=== PATIENT | male | born 1950 | race Asian ===

== ENCOUNTER 2024-11-07 09:52 | Day surgery (SDC) | payer OTHER, SELFPAY ==
[2024-11-07] VITALS (20 sets, daily range): BP systolic 112–169; BP diastolic 69–93; BMI 22.3
[2024-11-07 10:34] LABS: Glucose - Point of Care 140 mg/dl (70-99)
--- NOTE | 2024-11-07 16:35 | ITS.CL.ANGIO ---
Industrial Sales Representative - Angioplasty
Angioplasty
Procedure Report:
CARDIAC CATHETERIZATION REPORT
Date of Procedure: 11/07/2024
Referring: Ramon Parnell D.O.
INDICATION: Known coronary artery disease with prior LAD PCI, accelerating angina, abnormal stress test
PROCEDURE:
1. Left heart catheterization
2. Coronary angiography.
3. Intravascular ultrasound.
4. Successful intravascular lithotripsy of proximal LAD neoatherosclerosis ISR.
5. Successful PCI of the proximal LAD neoatherosclerosis ISR.
A total of 98 minutes of procedural/moderate sedation was utilized. An independent medical safety director was present to assist with and help manage the patient's level of consciousness and physiologic status.
ACCESS:
1. 6 Indian right radial artery using a modified Seldinger technique.
CATHETERS:
1. 5 Indian JR4.
2. 5 Indian JL 3.5.
3. 6 Indian EBU 3.5 guiding catheter.
HEMODYNAMIC DATA
Weight (kg): 64.4
AO (s/d/x, mmHg): 105/68/84
LV (s/x mmHg): 109/6
LEFT VENTRICULOGRAPHY: Not performed.
CORONARY ANGIOGRAPHY
Dominance: Right.
Left Main: Extremely short, trifurcating vessel. There is no coronary artery disease.
LAD: Large size vessel giving rise to 2 diagonals. A patent stent is observed in the proximal and mid LAD spanning the origin of the first diagonal. There is at least 30% in-stent restenosis throughout the entire stent with a focal 90% ISR
lesion in the distal margin of the stent.
Ramus: Large size vessel supplying the majority of the lateral wall giving rise to several smaller branches. There is no coronary artery disease.
Circumflex: Small size, AV groove vessel. There is no coronary artery disease.
RCA: Normal size, dominant vessel. There is no coronary artery disease. Of note, a large RV marginal arises immediately anterior to the RCA proper with a separate ostia.
INTERVENTION(S)
1. Intravascular ultrasound of the LAD.
2. Successful intracoronary lithotripsy of the entire stented segment (Shockwave 4.0 x 12 lithotripsy balloon).
3. Successful IVUS guided PCI of the proximal and mid LAD (Xience Skypoint 3.5 x 38 SANGEETHA, postdilated with a 3.5 NC balloon throughout and a 4.0 x 12 NC balloon in the proximal margin) with reduction in stenosis to 0%, maintaining DAVIAN-3 flow in the
LAD but loss of flow in the small first diagonal.
Narrative:
The decision was made to proceed with percutaneous coronary intervention. The diagnostic catheter was removed over a wire and a 6Fr EBU 3.5 guiding catheter was advanced to the aortic root and seated in the left main coronary artery. Additional
heparin was given and a Power Turn Flex wire was advanced into the distal LAD. The 90% proximal/mid LAD ISR lesion was predilated with a 2.0 x 12 semi-compliant balloon to 12 anum.
The decision was made to perform intracoronary imaging. An IVUS catheter was advanced through the guiding catheter and into the ostium of the artery. Ring down was performed once the imaging crystal was no longer inside of the guiding catheter. The
IVUS catheter was advanced but would not cross the ISR lesion. More dilation was indicated as was catheter support. The IVUS catheter was withdrawn and a 3.0 x 20 semicompliant balloon was advanced with GuideLiner support. The entire stented
segment was predilated to 12-14 anum. The semicompliant balloon was withdrawn and the IVUS was readvanced with the GuideLiner and support. This time, the IVUS catheter was able to enter the mid vessel with relative ease. The GuideLiner was pulled
back and intravascular ultrasound was performed in a retrograde fashion using a slow pullback. Intracoronary imaging demonstrated severe, neoatherosclerotic ISR in multiple sections of the stents, worse than represented by angiography. This also
demonstrated that the proximal margin of the stent was not well opposed to the proximal LAD artery wall. Vessel measurements were taken.
Given the severity of the calcification and the neoatherosclerotic ISR, the decision was made to proceed with plaque modification. A Shockwave 4.0 x 12 coronary lithotripsy balloon was advanced over the wire and into the proximal/mid LAD ISR
lesion. The balloon was sterilely connected to the controller and prepped to negative pressure. Meticulous care was taken while positioning the shockwave balloon. Once in satisfactory position, the balloon was inflated to 4 anum. After confirming
good contact with the vessel wall, 10 pulses were delivered. After delivering 10 pulses, the balloon was inflated to 6 anum then deflated. The entire lesion was treated in a similar manner for total of 12 rounds throughout the entire previous stent.
The Shockwave balloon was withdrawn and a 4.0 x 15 NC balloon was advanced. The entire stented segment was predilated to 14-16 anum.
The noncompliant balloon was withdrawn and IVUS was repeated, confirming prior measurements and demonstrating improvement in the in-stent restenosis lesion lumen.
The IVUS catheter was removed and a Xience Skypoint 3.5 x 38 drug-eluting stent was advanced. Meticulous care was taken while positioning the stent, ensuring that the previous stented segment was covered but that the proximal margin of the stent
did not protrude into the left main coronary artery. When we were satisfied with our position, the stent was deployed at 12 atmospheres. The stent balloon was removed. A 3.5 x 20 noncompliant balloon was advanced into the stent and the stent was
postdilated to 14�16 atmospheres throughout. The noncompliant balloon was withdrawn and a 4.0 x 15 NC balloon was advanced. The proximal stent margin was postdilated to 14 anum.
The noncompliant balloon was removed and IVUS was readvanced into the mid LAD. IVUS was performed in a retrograde fashion showing good stent expansion and apposition throughout the entire stented segment length. The proximal margin showed much
improved stent apposition to the proximal vessel wall. This also demonstrated that the stent did not intrude into the left main coronary artery in any way. The IVUS catheter was withdrawn.
Angiography was performed in orthogonal views, confirming good stent expansion and an excellent angiographic result, though we did note the loss of flow in the small first diagonal branch. The coronary wire was withdrawn and the guide was disengaged
from the artery. The catheter was removed over a standard J-wire. The patient was loaded with clopidogrel 600 mg.
Closure Device: Vascular band.
Radiation (mGy): 630.56
DAP (cm2.Gy): 48.8512
Fluoroscopy time (minutes): 21.5
CONCLUSIONS
1. Right dominant circulation with separate ostia of the RV marginal, a very short, trifurcating left main coronary artery, a patent stent in the proximal/mid LAD spanning the origin of a small first diagonal with at least 30% ISR throughout and a
focal, 90%, neoatherosclerotic ISR lesion, status post successful intracoronary lithotripsy (Shockwave 4.0 x 12 lithotripsy balloon) and IVUS guided PCI (Xience Skypoint 3.5 x 38 SANGEETHA, postdilated with a 3.5 NC balloon throughout and a 4.0 NC balloon
in the proximal margin) with reduction in stenosis to 0%, maintaining DAVIAN-3 flow in the LAD with loss of flow in the small first diagonal.
2. Normal filling pressures (LVEDP = 6 mmHg at 64.4 kg).
RECOMMENDATIONS:
1. Expectant management after cardiac catheterization via right radial approach.
2. Limited weight bearing on the right wrist for one week.
3. Dual antiplatelet therapy with aspirin and clopidogrel for at least 12 months, followed by aspirin indefinitely.
4. Cycle CK-MB and troponin overnight given loss of the small diagonal.
5. Aggressive secondary prevention with high-dose, high potency statin. Goal LDL <55.
6. OMT/GDMT as hemodynamics will tolerate.
7. Echocardiogram ordered and pending.
8. Referral to cardiac rehab.
Copy to: Ramon Parnell D.O.
Rogers Yang, DO, FACC, FACP
[2024-11-07 17:10] LABS: Glucose - Point of Care 122 mg/dl (70-99)
[2024-11-07] MEDS: ZESTRIL 5 MG PO (19:33)
[2024-11-07] MEDS: LIPITOR 40 MG PO (19:33)
[2024-11-07] MEDS: TYLENOL 650 MG PO (19:34)
[2024-11-07 20:43] LABS: Total CK 47 U/L (55-170)
[2024-11-07 20:54] LABS: Troponin I 0.056 ng/ml
[2024-11-07 22:07] LABS: Glucose - Point of Care 124 mg/dl (70-99)
--- NOTE | 2024-11-07 23:08 | PTCARENOTE ---
Received pt from landscape laborer into [facility]242 @ 1999. Rt wrist R band intact when arrived on unit. R band removed @ 2021 dressing applied. c/d/i. No bleeding or hematoma. Daughter at bedside. SR on the monitor VSS.
[2024-11-08 02:55] VITALS: BP 124/81
[2024-11-08 03:08] VITALS: BMI 21.5
[2024-11-08 03:45] LABS: Hematocrit 34.1 % (39.0-52.0); Hemoglobin 11.4 g/dL (13.0-18.0); Mean Corp Hgb Conc. 33.4 g/dL (33.0-37.0); Mean Corpuscular Hgb 30.2 pg (27.0-31.0); Mean Corpuscular Volume 90.5 fL (80.0-94.0); Red Blood Cell Count 3.77 10^6/uL (4.70-6.10); Red Cell Dist. Width 11.9 % (11.5-14.5); White Blood Cell Count 6.8 10^3/uL (4.8-10.8)
[2024-11-08 03:52] LABS: Blood Urea Nitrogen 21 mg/dl (9-20); Calcium 9.2 mg/dl (8.4-10.2); Carbon Dioxide 26 mmol/L (22-30); Chloride 107 mmol/L (98-107); Estimated Creatinine Clearance 51 ml/min; Glucose 112 mg/dl (70-99); HDL Cholesterol 40 mg/dl; LDL Cholesterol, Calculated 29 mg/dl; Potassium 4.1 mmol/L (3.5-5.1); Sodium 140 mmol/L (135-145); Total CK 69 U/L (55-170); Total Cholesterol 86 mg/dl (50-199); Triglyceride 88 mg/dl (10-149); Very Low Density Lipoprotein 17 mg/dl (0-30); eGFR > 60.00
[2024-11-08 04:03] LABS: Mean Platelet Volume 12.8 fL (7.4-10.4); Platelet Count 148 10^3/uL (130-400)
[2024-11-08 04:05] LABS: Troponin I 0.469 ng/ml
[2024-11-08 07:06] VITALS: BP 127/79
--- NOTE | 2024-11-08 07:40 | W.PN.CD ---
Today's Communication / Plan
-
Trend troponin/CK-MB.
Echocardiogram.
Discharge planning.
Impression / Plan
-
Impression/Plan: 74 y/o male with NIDDM2, HLD, HTN and known CAD admitted after cardiac catheterization for accelerating angina and an abnormal SPECT lead to PCI of densely calcified neoatherosclerotic ISR, complicated by occlusion of the small (~
1 mm) first diagonal.
#CAD
-Acute on chronic with accelerating angina.
-Known prior LAD PCI.
-Cardiac catheterization revealed 90% ISR of the pLAD stent, now s/p shockwave intracoronary lithotripsy for densely calcified neoatherosclerosis and IVUS guided PCI (Xience Skypoint 3.5 x 38 SANGEETHA, post dilated with a 3.5 NC balloon throughout and a
4.0 x 12 NC balloon in the proximal margin) with reduction in stenosis to 0% in the LAD and occlusion of the small (~1 mm) D1.
-CK normal. Troponin up to 0.768. CK-MB elevated but < 5x ULN. CK-MB/troponin levels are more in line post PCI troponin elevation rather than PPMI. Cycle to peak.
-Echocardiogram ordered/pending.
-DAPT with aspirin and clopidogrel.
-Continue atorvastatin, metoprolol.
#NIDDM2
-Chronic, stable.
-Resume dapagliflozin and metformin.
#HLD
-Chronic, stable.
-Total cholesterol = 86, LDL = 29, HDL = 40, Triglycerides = 88.
-Continue atorvastatin 40 mg daily.
#HTN
-Chronic, stable.
-Continue lisinopril.
#Dispo
-IVU status.
-Full code.
-Discharge planning.
Subjective/Interval History:
Catheterization, shockwave intracoronary artery lithotripsy and IVUS guided PCI of the 90% pLAD ISR lesion yesterday, complicated by the occlusion of a small first diagonal branch.
No acute events overnight.
DATA:
Cardiac catheterization/PCI, 11/07/2024:
CONCLUSIONS
1. Right dominant circulation with separate ostia of the RV marginal, a very short, trifurcating left main coronary artery, a patent stent in the proximal/mid LAD spanning the origin of a small first diagonal with at least 30% ISR throughout and a
focal, 90%, neoatherosclerotic ISR lesion, status post successful intracoronary lithotripsy (Shockwave 4.0 x 12 lithotripsy balloon) and IVUS guided PCI (Xience Skypoint 3.5 x 38 SANGEETHA, postdilated with a 3.5 NC balloon throughout and a 4.0 NC balloon
in the proximal margin) with reduction in stenosis to 0%, maintaining DAVIAN-3 flow in the LAD with loss of flow in the small first diagonal.
2. Normal filling pressures (LVEDP = 6 mmHg at 64.4 kg).
Physical Exam
Vital Signs/Labs
Vital Signs
Temp Pulse Resp BP Pulse Ox
36.6 C 74 20 124/81 100
11/08/24 07:07 11/08/24 03:00 11/08/24 07:07 11/08/24 02:55 11/08/24 07:07
11/06/24 11/07/24 11/08/24
11:59 11:59 11:59
Actual Weight 64.4 kg 62.1 kg
11/08/24 03:07
11/08/24 03:07
Triglycerides 88 mg/dl (10-149) 11/08/24 03:07
LDL Cholesterol, Calc 29 mg/dl 11/08/24 03:07
VLDL Cholesterol, Calc 17 mg/dl (0-30) 11/08/24 03:07
HDL Cholesterol 40 mg/dl 11/08/24 03:07
LAB Results
11/07/24 11/08/24
20:11 03:07
Troponin I 0.056 H* 0.469 H* D
Physical Exam
Constitutional: No acute distress and Comfortable
EENT: Anicteric and Moist mucous membranes
Cardiovascular: Rhythm & rate is regular, Pedal edema is absent, JVD pressure is normal, S1S2 is normal and Murmur/rub/gallop absent
Respiratory: Respiratory effort normal, Lungs clear to auscul., Wheeze Absent, Crackles Absent and Rhonchi Absent
GI: Soft, Distention absent, Flat, Non tender, Normal bowel sounds and Distention present
Neuro/Psych: AO x 3
Other: Cath Site (Right radial access site is C/D/I.)
Data Reviewed
-
Date of Service: November 08, 2024
Medical Decision Making: Reviewed Test Results, Independent Historian Assessment and Test Interpretation
EKG: Tracing Personally Visualized and interpreted and Report Reviewed by me
Echo: Ordered by me
Medical Tests (PFT, Pathology etc): Image Personally Visualized and interpreted, Report Reviewed by me, Discussed with Patient and Discussed with Family
Labs: Labs Reviewed by me
Old Records: Reviewed
[2024-11-08 08:18] LABS: Glucose - Point of Care 137 mg/dl (70-99)
[2024-11-08] MEDS: FARXIGA 5 MG PO (08:20)
[2024-11-08] MEDS: PLAVIX 75 MG PO (08:20)
[2024-11-08] MEDS: ASPIR LOW (ENTERIC COATED) 81 MG PO (08:20)
[2024-11-08] MEDS: TOPROL XL 25 MG PO (08:20)
[2024-11-08 08:41] LABS: Glucose - Point of Care 125 mg/dl (70-99)
[2024-11-08 09:34] LABS: Glycohemoglobin (HgbA1c) 6.1 % (4.0-5.6)
[2024-11-08 10:01] LABS: Troponin I 0.768 ng/ml
[2024-11-08 10:36] LABS: Total CK 91 U/L (55-170)
--- NOTE | 2024-11-08 10:47 | PTCARENOTE ---
Rec'd pt this shift awake and alert in bed. pt assisted oob up in chair, tolerated well. Pt NSR on monitor. Rt radial site dsg intact, no bleeding, no hematoma. Pts daughter at bedside. Pt denies pain, denies sob. See worklist for VS/I and O and
assessments.
[2024-11-08 11:02] LABS: CKMB 3.6 ng/ml (0.0-3.4)
[2024-11-08 11:24] VITALS: BP 104/76
--- NOTE | 2024-11-08 11:39 | CM ---
CM following for DC planning needs.
Met w/ patient + dtr. at bedside to complete initial assessment.
Pt. resides w/ spouse + dtr. in a private, [facility]. Functionally, patient is indep. w/ ADLs, mobility without the use of any assisted device.
Pt. has RX plan and uses [facility] in [place] for prescription needs.
Antic. DC plan is for home, no needs.
Will remain avail.
[2024-11-08 13:25] LABS: Glucose - Point of Care 125 mg/dl (70-99)
[2024-11-08 16:23] LABS: Total CK 86 U/L (55-170)
[2024-11-08 16:28] LABS: Troponin I 0.723 ng/ml
--- NOTE | 2024-11-08 16:40 | W.DS.TRANS ---
DC Summary - Story Teller
-
Discharge Instructions:
Discharge Diagnosis/Procedures Lithotripsy with angioplasty and stent to Left
Anterior Descending artery
Diet Low Cholesterol
Driving Restrictions No driving for 24 hours
Other Services Cardiac Rehab
Instructions:
Stand-Alone Forms: DC Instructions- Cath/EP Lab
Changes to Home Medications: Yes
Discharge Medications:
DC Medications w/original date entered in [employer]
aspirin 81 mg tablet,delayed release 81 mg PO DAILY 11/07/24
atorvastatin 40 mg tablet 40 mg PO QPM 11/07/24
dapagliflozin propanediol 5 mg tablet 5 mg PO DAILY 11/07/24
lisinopril 5 mg tablet 5 mg PO QPM 11/07/24
metformin 1,000 mg tablet 1,000 mg PO DAILY 11/07/24
metoprolol succinate 25 mg tablet,extended release 24 hr 25 mg PO DAILY 11/07/24
clopidogrel 75 mg tablet 75 mg PO DAILY #90 tabs 11/08/24
Home Medication Changes
new to plavix
Pending Results: No
[2024-11-08 16:46] LABS: CKMB 2.8 ng/ml (0.0-3.4)
[2024-11-08 18:10] LABS: Glucose - Point of Care 136 mg/dl (70-99)
[2024-11-08] MEDS: LIPITOR 40 MG PO (18:12)
[2024-11-08] MEDS: ZESTRIL 5 MG PO (18:12)
--- NOTE | 2024-11-08 18:37 | PTCARENOTE ---
~[id number]: Handoff report received from Liseth GAFFNEY. translation utilized. family at bedside. Pt Aox4, NSR on tele 70s, RA. Pt denies pain at this time. Troponin drawn and sent to lab, result 0.723. D/c ordered placed, waiting for echo to be read by
Dr. Yang.
~[id number]: d/c paperwork gone over with patient and family. Patient in stable condition at this time. Brought down to main lobby via wheelchair.
== END 2024-11-08 18:30 | disposition home or self-care (01) ==
LOC: CATH 09:52
PROVIDERS: Nurse Practitioner; ATTENDING PHYSICIAN Internal Medicine Cardiovascular Disease; FAMILY PHYSICIAN Internal Medicine; OTHER PHYSICIAN Internal Medicine Cardiovascular Disease
DX: I25.110 Atherosclerotic heart disease of native coronary artery with unstable angina pectoris (principal); E11.9 Type 2 diabetes mellitus without complications; E78.5 Hyperlipidemia, unspecified; Z79.82 Long term (current) use of aspirin; Z79.02 Long term (current) use of antithrombotics/antiplatelets; I11.9 Hypertensive heart disease without heart failure; I25.2 Old myocardial infarction; Z79.899 Other long term (current) drug therapy; Z79.84 Long term (current) use of oral hypoglycemic drugs
CPT/HCPCS: 92978; 99152; 99153; 92972; 80048; 80061; 82550; 82553; 82962; 83036; 84484; 85027; 85347; 93005; 93306; 93458; C1725; C1753; C1761; C1874; C1894; C9600; Q9967